=== PATIENT | female | born 1965 | race Caucasian/White ===

== ENCOUNTER 2018-04-22 05:29 | Emergency (ER) | payer BC, SELFPAY ==
[2018-04-22] MEDS ORDERED: NA CHLORIDE 0.9% 1,000 ML ONE (06:01)
[2018-04-22] MEDS ORDERED: ONDANSETRON 4 MG/2 ML VIAL ONE (06:01)
[2018-04-22] MEDS ORDERED: PANTOPRAZOLE 40 MG INJ ONE (06:01)
[2018-04-22 06:16] LABS: Absolute Lymphocytes (CBC) 2.2 K/uL (0.7-4.9); Absolute Monocytes 0.9 K/uL (0.1-1.3); Absolute Neutrophil 7.6 K/uL (1.8-8.0); Basophils % 0.8 % (0-1.3); Eosinophils % 0.8 % (0-4.4); Hematocrit 44.8 % (36.0-45.0); Lymphocytes % 20.6 % (15.3-44.8); MCH 27.3 pg (27.0-35.0); MCV 79.1 fL (80-100); MPV 7.7 fL (7.6-11.3); RBC Red Blood Cell Count 5.66 M/uL (3.86-4.86)
[2018-04-22 06:37] LABS: Albumin 3.7 g/dL (3.4-5.0); Bilirubin Direct 0.2 mg/dL (0-0.2); Bilirubin Total 0.8 mg/dL (0.2-1.0); Magnesium 2.1 mg/dL (1.8-2.4); Potassium 3.6 mmol/L (3.5-5.1); Protein, Total 8.5 g/dL (6.4-8.2)
--- NOTE | 2018-04-22 08:06 | RAD REPORT ---
EXAM DESCRIPTION: CT - Abdomen Pelvis Wo Contrast - 04/22/2018 7:51 am CLINICAL HISTORY: Abdominal pain, GI bleed, vomiting COMPARISON: None. TECHNIQUE: Axial [address] imaging of the abdomen and pelvis was performed without IV contrast. No IV contrast was given because of allergy, abnormal renal function, patient refusal or physician re quest. Oral contrast was given. All CT scans are performed using dose optimization technique as appropriate and may include automated exposure control or mA/KV adjustment according to patient size. FINDINGS: The initial image to the lower lung bases demonstrates a 3 centimeter area of patchy opaci fication only partially evaluated. There is a minimal focus of opacification in the medial right lowe r lung field. Anterior right base calcified granuloma is present. No pleural effusion or pneumothorax . No pericardial thickening or effusion. Liver size is normal. A 15 millimeter round low-attenuation mass is present in the liver adjacent to the falciform ligament. This has an 11 Hounsfield unit attenuation value and is believed to be an inc idental cyst. No acute spleen or pancreatic process. Gallbladder is contracted which accentuates wall thickness. Stones and sludge can be occult on CT imaging. No biliary tree dilatation. No hydronephrosis or suspicious renal mass. No significant adrenal finding. Isodense renal masses an d pyelonephritis cannot be excluded in the absence of IV contrast. Contracted urinary bladder shows n o suspicious finding. Calcified fundal fibroid present. No acute uterine or ovarian finding. No gastric dilatation, wall thickening or gastric mass identifiable. No acute small bowel finding. Or al contrast has reached the distal rectum. No colon wall thickening or mass. No acute colon process i dentifiable. Appendix is normal. No free air, free fluid or inflammatory stranding. No hernia, mass o r bulky lymphadenopathy. No suspicious bony findings. IMPRESSION: No bowel abnormality identified as a source for a GI bleed. No acute finding in the abdo men or pelvis. Contracted gallbladder accentuates wall thickness. No biliary tree dilatation. Gallbladder evaluation is limited. Bilateral posterior lower lung field opacification only partially evaluated on this study. These coul d be early pneumonia changes and need correlation with clinical presentation. Full assessment is limited is the absence of IV contrast.
--- NOTE | 2018-04-22 09:22 | ER ---
Nurse's Notes [facility] Name: Miranda Castellano Age: 53 yrs Sex: Female : 1965 Arrival Date: 04/22/2018 Time: 05:32 Bed 5 Private MD: Diagnosis: Vomiting, unspecified;Nausea and vomiting;Dehydration Presentation: 04/22 05:44 Presenting complaint: Patient states: abdominal pain and vomited with blood tinge as rr5 claimed today pain score 6/10 right and left upper quadrant. black stool, dizziness tingling sensation all over the body last Friday complaining of of sore throat , nausea and vomiting, fever diarrhea started Friday went to private doctor and diagnose with viral infection on medication. Transition of care: patient was not received from another setting of care. Onset of symptoms was April 21, 2018. Risk Assessment: Do you want to hurt yourself or someone else? Patient reports no desire to harm self or others. Initial Sepsis Screen: Does the patient meet any 2 criteria? No. Patient's initial sepsis screen is negative. Does the patient have a suspected source of infection? No. Patient's initial sepsis screen is negative. Care prior to arrival: Medication(s) given: azithromycin, naproxen,promethazine, Dicyclon. 05:44 Method Of Arrival: Ambulatory rr5 05:44 Acuity: SE 3 rr5 Triage Assessment: 05:50 General: Appears in no apparent distress. uncomfortable, Behavior is calm, cooperative, rr5 appropriate for age. Pain: Complains of pain in right upper quadrant and left upper quadrant Pain does not radiate. Pain currently is 6 out of 10 on a pain scale. Quality of pain is described as aching, Pain began gradually, Is intermittent. 05:50 EENT: No signs and/or symptoms were reported regarding the EENT system. Neuro: Level of rr5 Consciousness is awake, alert, obeys commands, Oriented to person, place, time, situation, Appropriate for age. Cardiovascular: Capillary refill < 3 seconds Patient's skin is warm and dry. Respiratory: Airway is patent Respiratory effort is even, unlabored, Respiratory pattern is regular, symmetrical. GI: Abdomen is round Bowel sounds present X 4 quads. Reports upper abdominal pain, bloody stool, nausea, vomiting. : No signs and/or symptoms were reported regarding the genitourinary system. Derm: No signs and/or symptoms reported regarding the dermatologic system. Musculoskeletal: No signs and/or symptoms reported regarding the musculoskeletal system. 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 - Social history:: Smoking status: Patient uses tobacco products, smokes one pack cigarettes per day. Patient uses street drugs, marijuana, Patient/guardian denies using alcohol. - Family history:: not pertinent. - Ebola Screening: : Patient negative for fever greater than or equal to 101.5 degrees Fahrenheit, and additional compatible Ebola Virus Disease symptoms Patient denies exposure to infectious person Patient denies travel to an Ebola-affected area in the 21 days before illness onset. - Hospitalizations: : No recent hospitalization is reported. Screenin:10 Abuse screen: Denies threats or abuse. Denies injuries from another. Nutritional rr5 screening: No deficits noted. Tuberculosis screening: No symptoms or risk factors identified. Fall Risk None identified. Assessment: 06:00 General: see triage assessment. GI: Abd is soft and non tender X 4 quads. rr5 06:25 Reassessment: Patient appears in no apparent distress at this time. Patient and/or rr5 family updated on plan of care and expected duration. Pain level reassessed. oral contrast consumed at 0625, CT scan staff informed. 06:36 Reassessment: Patient appears in no apparent distress at this time. Patient states rr5 feeling better. Patient states symptoms have improved. 07:30 Reassessment: Patient appears in no apparent distress at this time. No changes from sv previously documented assessment. Patient and/or family updated on plan of care and expected duration. Pain level reassessed. Patient is alert, oriented x 3, equal unlabored respirations, skin warm/dry/pink. 08:35 Reassessment: Pt given ice water for PO challenge. sv 09:12 Reassessment: Pt tolerated water but states she feels "a little queazy" but not enough sv to vomit. 09:32 Reassessment: Patient appears in no apparent distress at this time. Patient and/or sv family updated on plan of care and expected duration. Pain level reassessed. Patient is alert, oriented x 3, equal unlabored respirations, skin warm/dry/pink. Patient states feeling better. Patient states symptoms have improved. Vital Signs: 05:50 BP 136 / 81; Pulse 87; Resp 20; Temp 98.8; Pulse Ox 99% ; Weight 62.6 kg; Height 5 ft. rr5 4 in. (162.56 cm); Pain 6/10; 06:35 BP 127 / 66; Pulse 89; Resp 19; Pulse Ox 99% on R/A; Pain 5/10; rr5 07:32 BP 118 / 63; Pulse 71; Resp 18; Pulse Ox 96% ; sv 08:25 BP 140 / 57; Pulse 71; Resp 18; Pulse Ox 95% ; sv 09:07 BP 113 / 69; Pulse 60; Resp 16; Pulse Ox 97% ; sv 05:50 Body Mass Index 23.69 (62.60 kg, 162.56 cm) rr5 ED Course: 05:32 Patient arrived in ED. es 05:34 Benjamin Bolivar MD is Attending Physician. rn 05:44 Cholo Krishnan RN is Primary Nurse. rr5 05:50 Triage completed. rr5 05:55 Inserted saline lock: 20 gauge in right antecubital area, using aseptic technique. rr5 ,using aseptic technique. by emory esparza Blood collected. 06:00 Arm band placed on right wrist. rr5 06:12 Patient has correct armband on for positive identification. Bed in low position. Call rr5 light in reach. Side rails up X 1. Pulse ox on. NIBP on. Head of bed elevated. 07:20 Primary Nurse role handed off by Cholo Krishnan, RN sv 07:20 Digna Erazo, BUCKY is Primary Nurse. sv 07:[address] Scan. sv 07:37 Attending Physician role handed off by Benjamin Bolivar MD kdr 07:37 Dilan Cruz MD is Attending Physician. kdr 07:52 Abdomen In Process Unspecified. EDMS 07:56 Patient moved back from [place]. sv 09:32 No provider procedures requiring assistance completed. IV discontinued, intact, sv bleeding controlled, No redness/swelling at site. Pressure dressing applied. Administered Medications: 06:00 Drug: ProTONIX 40 mg Route: IVP; Site: right antecubital; rr5 07:19 Follow up: Response: No adverse reaction; Marked relief of symptoms rr5 06:02 Drug: Zofran 4 mg Route: IVP; Site: right antecubital; rr5 07:18 Follow up: Response: No adverse reaction; Marked relief of symptoms rr5 06:05 Drug: NS 0.9% 1000 ml Route: IV; Rate: 1000 ml; Site: right antecubital; rr5 07:19 Follow up: IV Status: Infusion continued rr5 Outcome: 09:22 Discharge ordered by . kdr 09:32 Discharged to home ambulatory, with family. sv 09:32 Condition: stable 09:32 Discharge instructions given to patient, Instructed on discharge instructions, follow up and referral plans. medication usage, Demonstrated understanding of instructions, follow-up care, medications, Prescriptions given X 1. 09:33 Patient left the ED. sv Signatures: Dispatcher [employer] Digna Toney RN Dilan Gonzales MD MD kdr Salyer, Edna es Nieto, Roman, MD MD rn Roque, Raymond, RN RN rr5
--- NOTE | 2018-04-22 09:22 | EDPHYS ---
Physician Documentation [facility] Name: Miranda Castellano Age: 53 yrs Sex: Female : 1965 Arrival Date: 04/22/2018 Time: 05:32 Bed 5 Private MD: ED Physician Dilan Cruz HPI: 04/22 05:59 This 53 yrs old Female presents to ER via Ambulatory with complaints of rn Abdominal Pain, Vomiting. 05:59 The patient presents to the emergency department with nausea, vomiting, diarrhea, rn abdominal pain. Onset: The symptoms/episode began/occurred 1 week(s) ago. Possible causes: unknown. The symptoms are aggravated by nothing. The symptoms are alleviated by nothing. Severity of symptoms: At their worst the symptoms were moderate in the emergency department the symptoms are unchanged. The patient has not experienced similar symptoms in the past. Reports abd pain, intermittent, left sided, assoc with nausea/vomiting/diarrhea, reports 1 week of symptoms, diagnosed with viral syndrome by doctor, not better with abx/nausea meds. Reports yesterday noticed small amount of blood in vomit and dark black stool. Feels generalized weakness and fatigue, + lightheaded. . 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 - Social history:: Smoking status: Patient uses tobacco products, smokes one pack cigarettes per day. Patient uses street drugs, marijuana, Patient/guardian denies using alcohol. - Family history:: not pertinent. - Ebola Screening: : Patient negative for fever greater than or equal to 101.5 degrees Fahrenheit, and additional compatible Ebola Virus Disease symptoms Patient denies exposure to infectious person Patient denies travel to an Ebola-affected area in the 21 days before illness onset. - Hospitalizations: : No recent hospitalization is reported. ROS: 05:59 Constitutional: Negative for fever, chills, and weight loss, Eyes: Negative for injury, rn pain, redness, and discharge, Neck: Negative for injury, pain, and swelling, Cardiovascular: Negative for chest pain, palpitations, and edema, Respiratory: Negative for shortness of breath, cough, wheezing, and pleuritic chest pain, Abdomen/GI: + abd pain/nausea/vomiting/diarrhea MS/Extremity: Negative for injury and deformity, Skin: Negative for injury, rash, and discoloration, Neuro: + generalized weakness Exam: 05:59 Constitutional: This is a well developed, well nourished patient who is awake, alert, rn and in no acute distress. Head/Face: Normocephalic, atraumatic. Eyes: Pupils equal round and reactive to light, extra-ocular motions intact. Lids and lashes normal. Conjunctiva and sclera are non-icteric and not injected. Cornea within normal limits. Periorbital areas with no swelling, redness, or edema. ENT: dry MM Cardiovascular: Regular rate and rhythm with a normal S1 and S2. No gallops, murmurs, or rubs. No JVD. No pulse deficits. Respiratory: Lungs have equal breath sounds bilaterally, clear to auscultationNo increased work of breathing, no retractions or nasal flaring. Abdomen/GI: soft, mild left sided abd tenderness, no rebound/guarding MS/ Extremity: Pulses equal, no cyanosis. Neurovascular intact. Full, normal range of motion. Equal circumference. Neuro: Awake and alert, GCS 15, oriented to person, place, time, and situation. Cranial nerves II-XII grossly intact. Motor strength 5/5 in all extremities. Sensory grossly intact. Vital Signs: 05:50 BP 136 / 81; Pulse 87; Resp 20; Temp 98.8; Pulse Ox 99% ; Weight 62.6 kg; Height 5 ft. rr5 4 in. (162.56 cm); Pain 6/10; 06:35 BP 127 / 66; Pulse 89; Resp 19; Pulse Ox 99% on R/A; Pain 5/10; rr5 07:32 BP 118 / 63; Pulse 71; Resp 18; Pulse Ox 96% ; sv 08:25 BP 140 / 57; Pulse 71; Resp 18; Pulse Ox 95% ; sv 09:07 BP 113 / 69; Pulse 60; Resp 16; Pulse Ox 97% ; sv 05:50 Body Mass Index 23.69 (62.60 kg, 162.56 cm) rr5 MDM: 05:34 Patient medically screened. rn 17:38 Data reviewed: vital signs, nurses notes, lab test result(s), radiologic studies. kdr Counseling: I had a detailed discussion with the patient and/or guardian regarding: the historical points, exam findings, and any diagnostic results supporting the discharge/admit diagnosis, lab results, radiology results, the need for outpatient follow up. 04/22 05:43 Order name: Basic Metabolic Panel; Complete Time: 06:58 rn 04/22 05:43 Order name: CBC with Diff; Complete Time: 06:58 rn 04/22 05:43 Order name: Hepatic Function; Complete Time: 06:58 rn 04/22 05:43 Order name: Lipase; Complete Time: 06:58 rn 04/22 05:43 Order name: Type And Screen; Complete Time: 06:58 rn 04/22 05:43 Order name: Magnesium; Complete Time: 06:58 rn 04/22 05:43 Order name: IV Saline Lock; Complete Time: 06:10 rn 04/22 05:43 Order name: Labs collected and sent; Complete Time: 06:10 rn 04/22 06:21 Order name: Abdomen ; Complete Time: 08:29 EDMS 04/22 06:57 Order name: ABO/RH no charge; Complete Time: 06:58 EDMS 04/22 08:30 Order name: PO challenge; Complete Time: 09:12 kdr Administered Medications: 06:00 Drug: ProTONIX 40 mg Route: IVP; Site: right antecubital; rr5 07:19 Follow up: Response: No adverse reaction; Marked relief of symptoms rr5 06:02 Drug: Zofran 4 mg Route: IVP; Site: right antecubital; rr5 07:18 Follow up: Response: No adverse reaction; Marked relief of symptoms rr5 06:05 Drug: NS 0.9% 1000 ml Route: IV; Rate: 1000 ml; Site: right antecubital; rr5 07:19 Follow up: IV Status: Infusion continued rr5 Disposition: 04/22/18 09:22 Discharged to Home. Impression: Vomiting, unspecified, Nausea and vomiting, Dehydration. - Condition is Stable. - Discharge Instructions: Nausea and Vomiting, Adult, [id number], Dehydration, Adult, [id number]. - Prescriptions for Zofran 4 mg Oral Tablet - take 1 tablet by ORAL route every 4-6 hours As needed; 15 tablet. - Medication Reconciliation Form, Thank You Letter form. - Follow up: Private Physician; When: 2 - 3 days; Reason: If symptoms return, Further diagnostic work-up, Recheck today's complaints, Continuance of care, Re-evaluation by your physician. - Problem is new. - Symptoms have improved. Signatures: Dispatcher [employer] [facility] Digna Erazo RN RN sv Dilan Cruz MD MD kdr Nieto, Roman, MD MD rn Roque, Raymond, RN RN rr5 Corrections: (The following items were deleted from the chart) 06:21 05:43 Abdomen Pelvis W Con+CT.RAD.BRZ ordered. [facility] 09:33 09:22 04/22/2018 09:22 Discharged to Home. Impression: Vomiting, unspecified; Nausea sv and vomiting; Dehydration. Condition is Stable. Forms are Medication Reconciliation Form, Thank You Letter, Antibiotic Education, Prescription Opioid Use. Follow up: Private Physician; When: 2 - 3 days; Reason: If symptoms return, Further diagnostic work-up, Recheck today's complaints, Continuance of care, Re-evaluation by your physician. Problem is new. Symptoms have improved. kdr
== END 2018-04-22 09:33 | disposition home or self-care (01) ==
LOC: ER 05:29
DX: E86.0 Dehydration (principal); F17.210 Nicotine dependence, cigarettes, uncomplicated; Z91.018 Allergy to other foods; Z91.048 Other nonmedicinal substance allergy status
CPT/HCPCS: 36415; 74176; 80048; 80076; 83690; 83735; 85025; 86850; 86900; 86901; 96361; 96374; 96375; 99284; C9113; J2405; J7030